=== PATIENT | male | born 1945 | race Caucasian/White ===

== ENCOUNTER 2019-06-10 22:45 | Emergency (ER) | payer OTHER ==
[2019-06-10 23:42] LABS: Basophils % 0.4 % (0-1.3); Hematocrit 43.2 % (39.6-49.0); Lymphocytes % 30.2 % (15.3-44.8); MPV 9.4 fL (7.6-11.3); RBC Red Blood Cell Count 4.67 M/uL (4.33-5.43)
[2019-06-10 23:58] LABS: BUN Blood Urea Nitrogen 20 mg/dL (7-18); Bicarbonate 26 mmol/L (21-32); Glucose Level 90 mg/dL (74-106); Sodium Level 144 mmol/L (136-145); Troponin (Emerg Dept Use Only) < 0.02 ng/mL (0.0-0.045)
--- NOTE | 2019-06-11 00:42 | ER ---
Nurse's Notes [facility] Name: Delmar Allison Age: 74 yrs Sex: Male : 1945 Arrival Date: 06/10/2019 Time: 22:46 Bed 19 Private MD: Diagnosis: Hypertension;Headache Presentation: 06/10 23:06 Presenting complaint: Patient states: [facility] Lisinopril 5 mg once a day for High Blood Pressure. Ca,e to ED because blood pressure at home was 165/103 and hasn't gone down. Transition of care: patient was not received from another setting of care. Onset of symptoms was June 10, 2019. Risk Assessment: Do you want to hurt yourself or someone else? Patient reports no desire to harm self or others. Initial Sepsis Screen: Does the patient meet any 2 criteria? No. Patient's initial sepsis screen is negative. Does the patient have a suspected source of infection? No. Patient's initial sepsis screen is negative. Care prior to arrival: None. 23:06 Method Of Arrival: Ambulatory 23:06 Acuity: СВЕТЛАНА 3 Historical: - Allergies: 23:11 Codeine; - Home Meds: 23:11 atorvastatin oral oral [Active]; Flomax 0.4 mg Oral cp24 1 cap once daily [Active]; Dexilant oral oral [Active]; lisinopril 5 mg Oral tab 1 tab once daily [Active]; - PMHx: 23:11 BPH; fatty liver; Hypertension; High Cholesterol; - PSHx: 23:11 Hernia repair; Cholecystectomy; - Immunization history:: Adult Immunizations up to date, Flu vaccine is not up to date. - Coronavirus screen:: The patient has NOT traveled to [place] in the past 14 days. - Social history:: Smoking status: Patient/guardian denies using. - Family history:: not pertinent. - Ebola Screening: : Patient negative for fever greater than or equal to 101.5 degrees Fahrenheit, and additional compatible Ebola Virus Disease symptoms Patient denies exposure to infectious person. - Hospitalizations: : No recent hospitalization is reported. Screenin:12 Abuse screen: Denies threats or abuse. Denies injuries from another. Nutritional screening: No deficits noted. Tuberculosis screening: No symptoms or risk factors identified. Fall Risk None identified. 23:12 VAN Screening: Arm Drift: Patient shows no arm weakness. Visual Disturbance: No visual wh disturbance noted. Aphasia: No aphasia noted. Neglect: No neglect noted. Assessment: 23:13 General: Appears in no apparent distress. Behavior is calm, cooperative, appropriate for age. Pain: Complains of pain in back pain Pain does not radiate. Pain currently is 4 out of 10 on a pain scale. Quality of pain is described as aching. Neuro: Level of Consciousness is awake, alert, obeys commands, Oriented to person, place, time, situation, Appropriate for age Power Builder Developer are equal bilaterally Moves all extremities. Gait is steady, Speech is normal, Facial symmetry appears normal, Pupils are PERRLA. Cardiovascular: Heart tones S1 S2. Respiratory: Airway is patent Respiratory effort is even, unlabored, Respiratory pattern is regular, symmetrical, Breath sounds are clear bilaterally. GI: Abdomen is flat, non-distended. : No signs and/or symptoms were reported regarding the genitourinary system. EENT: No signs and/or symptoms were reported regarding the EENT system. Derm: Skin is intact, is healthy with good turgor, Skin is pink, warm \T\ dry. normal. Musculoskeletal: Circulation, motion, and sensation intact. 06/11 00:22 Reassessment: Patient appears in no apparent distress at this time. No changes from previously documented assessment. Patient and/or family updated on plan of care and expected duration. Pain level reassessed. Patient is alert, oriented x 3, equal unlabored respirations, skin warm/dry/pink. Vital Signs: 06/10 23:11 BP 188 / 115; Pulse 75; Resp 18; Temp 98.2; Pulse Ox 99% ; Weight 68.04 kg; Height 5 wh ft. 11 in. (180.34 cm); 06/11 00:15 BP 163 / 92; Pulse 68; Resp 18; Pulse Ox 99% on R/A; 06/10 23:11 Body Mass Index 20.92 (68.04 kg, 180.34 cm) NIH Stroke Scale Scores: 06/10 23:12 NIHSS Score: 0 ED Course: 22:46 Patient arrived in ED. ag3 22:47 Kiah Otoole is Primary Nurse. 22:51 Judah Bella MD is Attending Physician. rn 23:08 Triage completed. 23:14 Arm band placed on right wrist. 23:14 Patient has correct armband on for positive identification. Placed in gown. Bed in low position. Call light in reach. Side rails up X 1. quality assurance monitor chassis on. Pulse ox on. NIBP on. 23:21 Radiology exam delayed due to Currently having labs drawn. EKG. kw1 Administered Medications: No medications were administered Outcome: 06/11 00:41 Discharge ordered by . rn 00:49 Patient left the ED. NIH Stroke Scale - NIH Stroke Score Date: 06/10/2019 Time: 23:12 Total Score = 0 1a. Level of Consciousness (LOC) - 0(Alert) 1b. Level of Consciousness (LOC) (Year \T\ Age) - 0(Both) 1c. LOC Commands (Open \T\ Closes Eyes/Dental Technician) - 0(Both) 2. Best Gaze (Lateral Gaze Paresis) - 0(Normal) 3. Visual Field Loss - 0(No visual loss) 4. Facial Palsy - 0(Normal) 5a. Left Arm: Motor (10-second hold) - 0(No drift) 5b. Right Arm: Motor (10-second hold) - 0(No drift) 6a. Left Leg: Motor (5-second hold - always test supine) - 0(No drift) 6b. Right Leg: Motor (5-second hold - always test supine) - 0(No drift) 7. Limb Ataxia (finger/nose \T\ heel/yates - test with eyes open) - 0(Absent) 8. Sensory Loss (pinprick arms/legs/face) - 0(Normal) 9. Best Language: Aphasia (description/naming/reading) - 0(No aphasia) 10. Dysarthria (speech clarity - read or repeat words) - 0(Normal) 11. Extinction and Inattention (visual/tactile/auditory/spatial/personal) - 0(No abnormality) Initials: Signatures: Judah Bella MD MD rn Hab[place], Winsy KainAle kw1 Quiana Romero ag3
--- NOTE | 2019-06-11 00:43 | EDPHYS ---
Physician Documentation [facility] Name: Delmar Allison Age: 74 yrs Sex: Male : 1945 Arrival Date: 06/10/2019 Time: 22:46 Bed 19 Private MD: ED Physician Judah Bella HPI: 06/11 00:36 This 74 yrs old Male presents to ER via Ambulatory with complaints of High rn Blood Pressure. 00:36 The patient has elevated blood pressure and discovered this at home. Onset: The rn symptoms/episode began/occurred today. Modifying factors:. Severity of symptoms: At its worst the blood pressure was moderate, in the emergency department the blood pressure is improved. The patient has experienced similar episodes in the past. The patient has been recently seen by a physician:. Reports high blood pressure, noticed today, has been high for a few days, otherwise feels ok, no chest pain or sob. + mild headache and intermittent blurred vision. No focal neuro complaints. Seen by pcp yesterday and put on new lisinopril, 5mg. Took it and didn't help. Used to be on BP meds but would drop low so stopped taking 5 years ago without problems. . Historical: - Allergies: 06/10 23:11 Codeine; - Home Meds: 23:11 atorvastatin oral oral [Active]; Flomax 0.4 mg Oral cp24 1 cap once daily [Active]; wh Dexilant oral oral [Active]; lisinopril 5 mg Oral tab 1 tab once daily [Active]; - PMHx: 23:11 BPH; fatty liver; Hypertension; High Cholesterol; - PSHx: 23:11 Hernia repair; Cholecystectomy; - Immunization history:: Adult Immunizations up to date, Flu vaccine is not up to date. - Coronavirus screen:: The patient has NOT traveled to [place] in the past 14 days. - Social history:: Smoking status: Patient/guardian denies using. - Family history:: not pertinent. - Ebola Screening: : Patient negative for fever greater than or equal to 101.5 degrees Fahrenheit, and additional compatible Ebola Virus Disease symptoms Patient denies exposure to infectious person. - Hospitalizations: : No recent hospitalization is reported. ROS: 06/11 00:36 Constitutional: Negative for fever, chills, and weight loss, Eyes: Negative for injury, rn pain, redness, and discharge, Neck: Negative for injury, pain, and swelling, Cardiovascular: Negative for chest pain, palpitations, and edema, Respiratory: Negative for shortness of breath, cough, wheezing, and pleuritic chest pain, Abdomen/GI: Negative for abdominal pain, nausea, vomiting, diarrhea, and constipation, Back: Negative for injury and pain, MS/Extremity: Negative for injury and deformity, Skin: Negative for injury, rash, and discoloration, Neuro: Negative for weakness, numbness, tingling, and seizure. Exam: 06/10 23:48 ECG was reviewed by the Attending Physician. rn 06/11 00:36 Constitutional: This is a well developed, well nourished patient who is awake, alert, rn and in no acute distress. Head/Face: Normocephalic, atraumatic. Eyes: Pupils equal round and reactive to light, extra-ocular motions intact. Lids and lashes normal. Conjunctiva and sclera are non-icteric and not injected. Cornea within normal limits. Periorbital areas with no swelling, redness, or edema. Neck: Trachea midline, no thyromegaly or masses palpated, and no cervical lymphadenopathy. Supple, full range of motion without nuchal rigidity, or vertebral point tenderness. No Meningismus. Cardiovascular: Regular rate and rhythm. No pulse deficits. Respiratory: Lungs have equal breath sounds bilaterally, clear to auscultation and percussion. No rales, rhonchi or wheezes noted. No increased work of breathing, no retractions or nasal flaring. Abdomen/GI: Soft, non-tender MS/ Extremity: Pulses equal, no cyanosis. Neurovascular intact. Full, normal range of motion. Equal circumference. Neuro: Awake and alert, GCS 15, oriented to person, place, time, and situation. Cranial nerves II-XII grossly intact. Motor strength 5/5 in all extremities. Sensory grossly intact. Cerebellar exam normal. Normal gait. Vital Signs: 06/10 23:11 BP 188 / 115; Pulse 75; Resp 18; Temp 98.2; Pulse Ox 99% ; Weight 68.04 kg; Height 5 wh ft. 11 in. (180.34 cm); 06/11 00:15 BP 163 / 92; Pulse 68; Resp 18; Pulse Ox 99% on R/A; wh 02/13 23:11 Body Mass Index 20.92 (68.04 kg, 180.34 cm) NIH Stroke Scale Scores: 06/10 23:12 NIHSS Score: 0 MDM: 22:51 Patient medically screened. rn 06/11 00:36 Differential diagnosis: Malignant HTN, asymptomatic hypertension, HTN, chronic HTN. rn Data reviewed: vital signs, nurses notes, lab test result(s), EKG, radiologic studies, CT scan, and as a result, I will discharge patient. Counseling: I had a detailed discussion with the patient and/or guardian regarding: the historical points, exam findings, and any diagnostic results supporting the discharge/admit diagnosis, lab results, radiology results, the need for outpatient follow up, to return to the emergency department if symptoms worsen or persist or if there are any questions or concerns that arise at home. Response to treatment: the patient's symptoms have markedly improved after treatment, the patient's condition has returned to base line, the patient is now symptom free, and as a result, I will discharge patient. Special discussion: I discussed with the patient/guardian in detail that at this point there is no indication for admission to the hospital. It is understood, however, that if the symptoms persist or worsen the patient needs to return immediately for re-evaluation. Based on the history and exam findings, there is no indication for further emergent testing or inpatient evaluation. I discussed with the patient/guardian the need to see the primary care provider for further evaluation of the symptoms. ED course: BP improved without treatment/intervention, neg ct head, normal trop, no ischemia on ECG, will dc home with BP journal, has appt with PCP coming up. Just started on lisinopril yesterday and has only had 2 doses, may need more time. Return precautions given and had extensive talk with patient regarding BP and BP management. . 06/10 23:07 Order name: CBC with Diff rn 06/10 23:07 Order name: Basic Metabolic Panel rn 06/10 23:07 Order name: Troponin (emerg Dept Use Only) rn 06/10 23:43 Order name: CBC with Automated Diff; Complete Time: 00:07 EDMS 06/10 23:59 Order name: Basic Metabolic Panel; Complete Time: 00:07 EDMS 06/10 23:59 Order name: Troponin (Emerg Dept Use Only); Complete Time: 00:07 EDMS 06/10 23:07 Order name: CT Head Brain wo Cont rn 06/10 23:07 Order name: IV Start; Complete Time: 23:31 rn 06/10 23:07 Order name: EKG; Complete Time: 23:08 rn 06/10 23:07 Order name: EKG - Nurse/Tech; Complete Time: 23:31 rn EC/13 23:48 Rate is 70 beats/min. Rhythm is regular. QRS [place] is Normal. MO interval is prolonged rn at 240 msec. QRS interval is normal. QT interval is normal. No Q waves. T waves are Normal. No ST changes noted. Clinical impression: 1st degree heart block. Interpreted by me. Reviewed by me. Administered Medications: No medications were administered Disposition: 06/11/19 00:41 Discharged to Home. Impression: Hypertension, Headache. - Condition is Stable. - Discharge Instructions: General Headache Without Cause, Hypertension. - Medication Reconciliation Form, Thank You Letter, Antibiotic Education, Prescription Opioid Use form. - Follow up: Private Physician; When: As needed; Reason: Recheck today's complaints, Re-evaluation by your physician. - Problem is new. - Symptoms have improved. NIH Stroke Scale - NIH Stroke Score Date: 06/10/2019 Time: 23:12 Total Score = 0 1a. Level of Consciousness (LOC) - 0(Alert) 1b. Level of Consciousness (LOC) (Year \T\ Age) - 0(Both) 1c. LOC Commands (Open \T\ Closes Eyes/Noise Tester) - 0(Both) 2. Best Gaze (Lateral Gaze Paresis) - 0(Normal) 3. Visual Field Loss - 0(No visual loss) 4. Facial Palsy - 0(Normal) 5a. Left Arm: Motor (10-second hold) - 0(No drift) 5b. Right Arm: Motor (10-second hold) - 0(No drift) 6a. Left Leg: Motor (5-second hold - always test supine) - 0(No drift) 6b. Right Leg: Motor (5-second hold - always test supine) - 0(No drift) 7. Limb Ataxia (finger/nose \T\ heel/yates - test with eyes open) - 0(Absent) 8. Sensory Loss (pinprick arms/legs/face) - 0(Normal) 9. Best Language: Aphasia (description/naming/reading) - 0(No aphasia) 10. Dysarthria (speech clarity - read or repeat words) - 0(Normal) 11. Extinction and Inattention (visual/tactile/auditory/spatial/personal) - 0(No abnormality) Initials: Signatures: Dispatcher [employer] Judah Worthington MD MD rn Habalo, Winsy Corrections: (The following items were deleted from the chart) 06/11 00:49 00:41 06/11/2019 00:41 Discharged to Home. Impression: Hypertension; Headache. Condition is Stable. Forms are Medication Reconciliation Form, Thank You Letter, Antibiotic Education, Prescription Opioid Use. Follow up: Private Physician; When: As needed; Reason: Recheck today's complaints, Re-evaluation by your physician. Problem is new. Symptoms have improved. rn
--- NOTE | 2019-06-11 08:33 | RAD REPORT ---
EXAM DESCRIPTION: CT - Head Brain Wo Cont - 06/11/2019 1:53 am CLINICAL HISTORY: 74 years Male hypertension;Headache COMPARISON: None TECHNIQUE: Images were obtained in axial, sagittal, and coronal planes. This exam was performed according to our departmental dose-optimization program which includes use of Automated Exposure Control, adjustment of the mA and/or kV according to patient size and/or use of i terative reconstruction technique. FINDINGS: Ventricular system appears normal. No abnormal areas of increased or decreased attenuation are seen involving the brain parenchyma. No e xtra-axial fluid collections noted. No evidence for skull fracture. Symmetric aeration mastoid air cells bilaterally. Unremarkable parana brook sinuses. IMPRESSION: No acute intracranial abnormality. No evidence for hemorrhage, mass lesion, or large acu te infarction. Electronically signed by: Taylor Cain MD 06/11/2019 12:05 AM CAMERA SYSTEMS ENGINEER Due to temporary technical issues with the PACS/Fluency reporting system, reports are being signed by the in house radiologist as a courtesy to ensure prompt reporting. The interpreting radiologist is f ully responsible for the content of the report.
--- NOTE | 2019-06-11 13:35 | EKG ---
Test Date: 2019-06-10 Test Time: 23:23:31 Mobile Sales Consultant: TERRIE MEASUREMENT RESULTS: Intervals: Rate: 70 SC: 240 QRSD: 82 QT: 360 QTc: 388 Carlotta: P: 70 SC: 240 QRS: 56 T: 62 INTERPRETIVE STATEMENTS: Sinus rhythm with 1st degree AV block Otherwise normal ECG Compared to ECG 05/18/2018 11:58:19 First degree AV block now present Electronically Signed On 06-11-19 13:34:19 INDUSTRIAL RELATIONS OFFICER by Gorge Padilla
[2019-06-11 16:43] VITALS: TEMP 98.2; O2SAT 99
[2019-06-11 16:45] VITALS: BP 163/92
== END 2019-06-11 00:49 | disposition home or self-care (01) ==
LOC: ER 22:45
DX: I10 Essential (primary) hypertension (principal); R51 Headache; E78.00 Pure hypercholesterolemia, unspecified; Z88.6 Allergy status to analgesic agent
CPT/HCPCS: 36415; 70450; 80048; 84484; 85025; 93005; 99284

== ENCOUNTER 2024-05-09 16:08 | Emergency (ER) | payer OTHER ==
[2024-05-09 17:47] LABS: SARS-CoV-2 Antigen CONTROL BLUE LINE VIS/BG OK; SARS-CoV-2 Antigen Rapid Res Negative (Negative)
--- NOTE | 2024-05-09 18:17 | RAD REPORT ---
EXAMINATION: ONE VIEW CHEST XR CLINICAL INDICATION: Male, 79 years old.,COUGH TECHNIQUE: Frontal chest projection is submitted. Examination is limited by patient positioning and t echnique. COMPARISON: 05/18/2018 FINDINGS: The lungs are diffusely emphysematous but grossly clear. No pneumothorax or sizable effusion. The he art is normal in size. Mediastinal contours are unremarkable. IMPRESSION: No acute intrathoracic abnormalities.
--- NOTE | 2024-05-09 18:35 | ER ---
Nurse's Notes [facility] Name: Delmar Allison Age: 79 yrs Sex: Male : 1945 Arrival Date: 05/09/2024 Time: 16:08 Bed 9 Private MD: Diagnosis: Acute upper respiratory infection, unspecified Presentation: 05/09 16:51 Chief complaint: Patient states: COUGH AND CONGESTION WITH FLU SYMPTOMS X 2 WEEKS. db STATES HAD SOME WHEEZING AND FEELING WEAK. TAKING OTC COUGH SYRUP AND COUGH DROPS. Coronavirus screen: Client denies travel out of the [place] in the last 14 days. At this time, the client does not indicate any symptoms associated with coronavirus-19. Ebola Screen: Patient negative for fever greater than or equal to 101.5 degrees Fahrenheit, and additional compatible Ebola Virus Disease symptoms Patient denies exposure to infectious person. Patient denies travel to an Ebola-affected area in the 21 days before illness onset. No symptoms or risks identified at this time. Initial Sepsis Screen: Does the patient meet any 2 criteria? No. Patient's initial sepsis screen is negative. Does the patient have a suspected source of infection? No. Patient's initial sepsis screen is negative. Risk Assessment: Do you want to hurt yourself or someone else? Patient reports no desire to harm self or others. Onset of symptoms was May 09, 2024. 16:51 Method Of Arrival: Ambulatory db 16:51 Acuity: СВЕТЛАНА 3 db Triage Assessment: 16:55 General: Appears in no apparent distress. comfortable, Behavior is calm, cooperative. db Pain: Denies pain. Neuro: Level of Consciousness is awake, alert, obeys commands, Oriented to person, place, time, situation. Respiratory: Reports cough that is Airway is patent Respiratory effort is even, unlabored, Respiratory pattern is regular, symmetrical. Historical: - Allergies: 16:55 Codeine; db - PMHx: 16:55 BPH; fatty liver; High Cholesterol; Hypertension; db - PSHx: 16:55 Cholecystectomy; right knee surgery; umbilical hernia repair; db - Immunization history:: Adult Immunizations unknown. - Infectious Disease History:: Denies. - Social history:: Smoking status: Patient denies any tobacco usage or history of. Vital Signs: 16:51 BP 153 / 94; Pulse 97; Resp 18; Temp 98.6; Pulse Ox 95% ; Weight 68.04 kg; Height 5 ft. db 11 in. ; Pain 0/10; 16:51 Body Mass Index 20.92 (68.04 kg, 180.34 cm) db 16:51 Pain Scale: Adult db ED Course: 16:11 Patient arrived in ED. al6 16:55 Triage completed. db 16:55 Sor[facility] Fischer [facility]C [facility]. kb 16:55 Judah Bella MD is Attending Physician. kb 16:55 Arm band placed on Patient placed in waiting room. db 17:11 SARS-COV-2 Antigen Rapid Sent. cc6 17:11 Flu Sent. cc6 17:11 COVID swab sent to lab. Flu and/or RSV swab sent to lab. cc6 17:27 Chest Single View XRAY In Process Unspecified. EDMS 18:58 Angela Francis, RN is Primary Nurse. iw Administered Medications: No medications were administered Outcome: 18:35 Discharge ordered by . kb 18:58 Patient left the ED. iw Signatures: Dispatcher [employer] EDMS Soraya Fischer FNP-C FNP-Angela Hinojosa, RN RN Florinda Presley, RN RN db Dafne Alston cc6 Bety Nash al6
--- NOTE | 2024-05-09 18:35 | EDPHYS ---
Physician Documentation [facility] Name: Delmar Allison Age: 79 yrs Sex: Male : 1945 Arrival Date: 05/09/2024 Time: 16:08 Bed 9 Private MD: ED Physician Judah Bella HPI: 05/09 17:16 This 79 yrs old Male presents to ER via Ambulatory with complaints of Flu Symptoms. kb 17:16 Pt is an 79 year old male who presents for cough and congestion that started 2 weeks kb ago. Denies fever, shortness of breath. States he has had good days and bad, some days he can hear congestion in his lungs. States he coughed all night so his said he needed to come in to make sure he didn't have pneumonia. . Historical: - Allergies: 16:55 Codeine; db - PMHx: 16:55 BPH; fatty liver; High Cholesterol; Hypertension; db - PSHx: 16:55 Cholecystectomy; right knee surgery; umbilical hernia repair; db - Immunization history:: Adult Immunizations unknown. - Infectious Disease History:: Denies. - Social history:: Smoking status: Patient denies any tobacco usage or history of. ROS: 17:16 Constitutional: As per HPI kb Exam: 17:16 Constitutional: This is a well developed, well nourished patient who is awake, alert, kb and in no acute distress. Head/Face: Normocephalic, atraumatic. ENT: Moist Mucous membranes Cardiovascular: Regular rate Respiratory: Respirations even and unlabored. No increased work of breathing. Talking in full sentences Abdomen/GI: Soft, non-tender. No distention Skin: Warm, dry with normal turgor. Normal color. MS/ Extremity: Pulses equal, no cyanosis. Neurovascular intact. Full, normal range of motion. Neuro: Awake and alert, GCS 15, oriented to person, place, time, and situation. Vital Signs: 16:51 BP 153 / 94; Pulse 97; Resp 18; Temp 98.6; Pulse Ox 95% ; Weight 68.04 kg; Height 5 ft. db 11 in. ; Pain 0/10; 16:51 Body Mass Index 20.92 (68.04 kg, 180.34 cm) db 16:51 Pain Scale: Adult db MDM: 16:55 Medical Screening Exam initiated kb 17:16 Data reviewed: vital signs, nurses notes. kb 18:35 Differential diagnosis: flu, covid, uri, pneumonia. I considered the following kb discharge prescriptions or medication management in the emergency department I discussed and recommended Over The Counter medications, Antibiotics: At this time antibiotics are not recommended, Antivirals: At this time, antivirals are not recommended. Historians other than the Patient: Spouse/Significant Other: . Counseling: I had a detailed discussion with the patient and/or guardian regarding the historical points, exam findings, and any diagnostic results supporting the discharge/admit diagnosis, lab results, radiology results, the need for outpatient follow up, a family practitioner, to return to the emergency department if symptoms worsen or persist or if there are any questions or concerns that arise at home. 05/09 17:03 Order name: Flu; Complete Time: 18:07 kb 05/09 17:03 Order name: SARS-COV-2 Antigen Rapid; Complete Time: 17:50 kb 05/09 17:03 Order name: Chest Single View XRAY; Complete Time: 18:20 kb Administered Medications: No medications were administered Disposition: 05/10 09:07 Co-signature as Attending Physician, Judah Bella MD I reviewed the patient's care rn provided by the Advanced Practice Provider and agree with the diagnosis and treatment plan. Disposition Summary: 05/09/24 18:35 Discharge Ordered Notes: Location: Home Condition: Stable kb Diagnosis - Acute upper respiratory infection, unspecified kb Followup: kb - With: Emergency Department - When: As needed - Reason: Worsening of condition Followup: kb - With: Private Physician - When: 2 - 3 days - Reason: Recheck today's complaints, Continuance of care, Re-evaluation by your physician Discharge Instructions: - Discharge Summary Sheet kb - Upper Respiratory Infection, Adult, [id number] kb Forms: - Medication Reconciliation Form kb - Antibiotic Education kb - Prescription Opioid Use kb - Patient Portal Instructions kb - Leadership Thank You Letter kb Prescriptions: - albuterol sulfate 90 mcg/actuation Inhalation HFA Aerosol Inhaler - inhale 2 puff INHALATION route every 4-6 hours As needed; 1 unit; Refills: 0, kb Product Selection Permitted Signatures: Dispatcher [employer] EDMS Soraya Fischer, AUTOMATIC BRINE MIXER OPERATOR-C AUTOMATIC BRINE MIXER OPERATOR-Ckb Bella, Judah, MD MD rn Bonilla, Florinda, RN RN db Corrections: (The following items were deleted from the chart) 05/09 17: 17:04 Chest Single View+RAD.RAD.BRZ ordered. EDMS EDMS 17: 17:04 Influenza Screen (A \T\ B)+BA.LAB.BRZ ordered. EDMS EDMS : 17:04 SARS-COV-2 Antigen Rapid+I.LAB.BRZ ordered. EDMS EDMS
[2024-05-11 16:12] VITALS: BP 153/94; TEMP 98.6; O2SAT 95
== END 2024-05-09 18:58 | disposition home or self-care (01) ==
LOC: ER 16:08
DX: J06.9 Acute upper respiratory infection, unspecified (principal); I10 Essential (primary) hypertension; E78.00 Pure hypercholesterolemia, unspecified; Z11.52 Encounter for screening for COVID-19; Z88.5 Allergy status to narcotic agent
CPT/HCPCS: 36415; 71045; 87804; 87811; 99282